=== PATIENT | male | born 2000 | race Caucasian/White ===

== ENCOUNTER 2024-03-08 14:55 | Outpatient (AMB) | payer BC, SELFPAY ==
[2024-03-08 15:00] VITALS: BP 120/74; PULSE 74; O2SAT 96; BMI 39.7
--- NOTE | 2024-03-08 15:00 | MHC.PC.OV ---
Vital Signs 03/08/24 15:00 Height 5 ft 8 in Weight 261 lb 2 oz BMI 39.7 BP 120/74 Blood Pressure Location Lt brachial Position Sitting Pulse 74 Pulse Source Pulse Oximeter Pulse Oximetry (%) 96 Oxygen Delivery Method Room Air Intake Visit Reasons: New patient-req physical Intake Note: Patient is here today as a new patient, and would like a refill on his inhaler, and would like TDAP, because he's going to be a father in April. Allergies No Known Allergies [No Known Allergies*] Allergy (Unverified 03/08/24 15:06) Medication List - Last Reconciled 03/08/24 by Brayan Vinson MD albuterol sulfate 90 mcg/actuation (Ventolin HFA) 2 puffs inhalation Q4-6H PRN cetirizine (All Day Allergy (cetirizine)) 10 mg PO DAILY PRN Tobacco use date assessed: 03/08/24 Dental Screening Dental Screen Date: 03/08/24 Did you have a dental visit in the last 12 months?: No Did you have a dental problem in the last 6 months where you did not have access to dental care?: No Was dental information given to patient?: Patient has dentist HPI New patient-req physical HPI Details New patient Prior PCP:?Jaylan Pelayo Last office visit/CPE: 1 yr Acute issue(s): Contact Derm PMHx: Asthma, Allergies. SurgHx: Perianal Abscess [facility] Blocked tear duct stented as infant FHx: Mom: Mom Asthma. Dad: Asthma, Cholecystitis. SocHx: No cigs. Vapes. EtOH 1- 2 x a week 3-4 dr. STEELE daily. No other drugs [facility] Medical History (Updated 03/08/24 @ 15:52 by Brayan Vinson MD) Acute hand eczema Asthma Surgical History (Updated 03/08/24 @ 15:13 by Kailyn Flores CMA) History of dacryocystorhinostomy Family History (Updated 03/08/24 @ 15:17 by Kailyn Flores CMA) Mother Asthma Psychiatric disorder Mental health disorder Father Asthma Paternal Grandfather Alcoholism Substance use disorder Social History (Updated 03/08/24 @ 15:23 by Kailyn Flores CMA) Household Members: Family Both parents involved: No Caregiver staying overnight: No Housing: Apartment Are you a primary ambulatory care nurse to a significant other at home: No Do you presently have visiting nurse or other home services: No 75 years or older and lives alone: No Alcohol intake: current Alcohol type: beer, hard liquor and other Comment: 2x a week. Patient Tobacco Use Status: Never used Tobacco e-Cigarette/Vaping Use: Currently Using Second Hand Smoke Exposure: Yes Use of substances other than those prescribed or required for medical reasons: Yes Substance Use Type: Marijuana Substance Use Type Other:: recreational Last Used Substance: Hours (ago) Have you been hit, kicked, punched, or otherwise hurt by someone within the past year? 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 1. Little interest or pleasure in doing things: not at all 2. Feeling down, depressed, or hopeless: not at all 3. Trouble falling or staying asleep, or sleeping too much: not at all 4. Feeling tired or having little energy: not at all 5. Poor appetite or overeating: not at all 6. Feeling bad about yourself - or that you are a failure or have let yourself or your family down: not at all 7. Trouble concentrating on things, such as reading the newspaper or watching television: not at all 8. Moving or speaking so slowly that other people could have noticed. Or the opposite - being so fidgety or restless that you have been moving around a lot more than usual: not at all 9. Thoughts that you would be better off or of hurting yourself in some way: not at all Total score: 0 Depression Screening Interpretation: Negative Depression Screening Done: Yes 32055 - PHQ-9 Billing: Yes Source: Developed by Drs. Bayron Andrews, Spencer Lyle and colleagues, with an educational jaylin from [employer]. Thrive Questionnaire Date Thrive assessed: 03/08/24 I am a: Patient What is your living situation today?: I have a steady place to live Within the past 12 months, did the food you bought not last and you didn't have the money to get more?: Never true Within the past 12 months, did you worry whether your food would run out before you got money to buy more?: Never true Do you have trouble paying for medicines?: No Do you have trouble getting transportation to medical appointments?: No Do you have trouble paying your heating and electricity bill?: No Do you have trouble taking care of your child, family member or friend?: No Do you have trouble with day-to-day activities such as bathing, preparing meals, shopping, managing finances, etc.?: No Are you currently unemployed and looking for a job?: No Are you interested in more education?: No THRIVE Score: 0 AUDIT C Alcohol Use Questionnaire (AUDIT-C) 1. How often do you have a drink containing alcohol?: 2-3 times a week 2. How many drinks containing alcohol do you have on a typical day when you are drinking?: 3 or 4 3. How often do you have six or more drinks on one occasion?: Never Total Score: 4 RC-7 AMB Questionnaire RC-7 Date RC - 7 assessed: 03/08/24 Feeling nervous, anxious, or on edge: 0 = Not at all Not being able to stop or control worryin = Not at all Worrying too much about different things: 0 = Not at all Trouble relaxin = Not at all Being so restless that it is hard to sit still: 0 = Not at all Becoming easily annoyed or irritable: 0 = Not at all Feeling afraid as if something awful might happen: 0 = Not at all Total RC-7 score (0-4 normal; 5-9 mild; 10-14 moderate; 15-21 severe): 0 Source: Developed by Drs. Bayron Andrews, Spencer Lyle and colleagues, with an educational jaylin from [employer]. RC-7 Assessment Billing RC-7 Assessment Tool: RC-7 Assessment 85217 ACT Questionnaire In the past 4 weeks, how much of the time did your asthma keep you from getting as much done at work, school or at home?: None of the time During the past 4 weeks, how often have you had shortness of breath?: 1-2 times a week During the past 4 weeks, how often did your asthma symptoms wake you up at night or earlier than usual in the morning?: Once or twice per week (once a month) During the past 4 weeks, how often have you had to use your rescue inhaler or nebulizer medication?: Once a week or less How would you rate your asthma control during the past 4 weeks?: Well controlled Score: 21 Review of Systems Const Denies chills, Denies fatigue, Denies fever(s), Denies headache(s) and Denies weakness ENT Denies dizziness and Denies headache(s) Card Denies chest pain, Denies lightheadedness, Denies dyspnea and Denies other (Palpitations) Resp Denies cough, Denies dyspnea, Denies wheezing and Denies other ( shortness of breath) Musc Denies numbness and Denies tingling Neuro Denies dizziness, Denies headache(s), Denies numbness, Denies tingling, Denies paresthesias and Denies weakness Psych Denies anxiety and Denies depression Endo Denies fatigue Aller/Immun Denies wheezing Physical exam (Primary Care) Vital Signs: Last Vital Signs Pulse 74 03/08/24 15:00 BP 120/74 03/08/24 15:00 Pulse Ox 96 03/08/24 15:00 Oxygen Delivery Method Room Air 03/08/24 15:00 BMI result Body Mass Index 39.7 Tobacco/Smoking Status: Tobacco use Status Tobacco use date assessed 03/08/24 03/08/24 15:31 Patient Tobacco Use Status Never used Tobacco 03/08/24 15:31 e-Cigarette/Vaping Use Currently Using 03/08/24 15:31 PHQ-9: PHQ-9 Score PHQ-9: Total score 0 03/08/24 15:33 Depression Screening Interpretation: Negative Thrive Assessment: Date of Thrive Assessment Date Thrive assessed 03/08/24 03/08/24 15:31 Const General: no acute distress and well developed Nutritional Appearance: well nourished Orientation/consciousness: patient oriented x3 [facility] Head: Yes normocephalic and Yes atraumatic Eyes General: appearance normal, both eyes and all related structures Pupils: Equal, round and reactive pupils present EOM: EOMs intact bilaterally Resp Effort & Inspection: normal respiratory effort Auscultation: clear to auscultation bilaterally Cardio Rate: regular rate Rhythm: regular rhythm Heart sounds: S1 normal heart sound present, S2 normal heart sound present, no gallops, no murmurs and no rubs Skin Other: Dry flaky excoriated skin bilateral knuckles Neuro General: patient oriented x3 and gait normal Cranial nerves: Yes Equal, round and reactive pupils present Psych Affect: normal affect Assessment and Plan Assessment & Plan (1) Contact dermatitis: Code(s): L25.9 - Unspecified contact dermatitis, unspecified cause Plan: Dry?excoriated?skin?with?small?skin?breaks?on?bilateral?hands/knuckles 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 Use?a?moisturizer?cream?after?every?hand?wash Avoid?harsh?soaps?and?chemicals Will?give?him?a?script?for?triamcinolone?ointment (2) Asthma: Code(s): J45.909 - Unspecified asthma, uncomplicated Plan: Patient?vapes?and?also?uses?MJ?daily Advised?only?clean?air?in?lungs.??He?can?let?me?know?if?he?wants?help?with?quitting Continue?albuterol?as?needed His?lungs?were?clear?today (3) Allergies: Code(s): T78.40XA - Allergy, unspecified, initial encounter Plan: Continue?cetirizine (4) Laboratory exam ordered as part of routine general medical examination: Code(s): Z00.00 - Encounter for general adult medical examination without abnormal findings Plan: Check?lab (5) Immunization due: Code(s): Z23 - Encounter for immunization Plan: Patient?is?going?to?be?a?father?soon?and?is?due?for?Tdap He?will?get?this?today Orders: Orders Lipid Panel Today Z00.00 - Encounter for general adult medical examination without abnormal findings Microalbumin, Random (w Creat) Today I10 - Essential (primary) hypertension TSH reflex Free T4 Today Z00.00 - Encounter for general adult medical examination without abnormal findings HIV Ab/Ag Today Z11.3 - Encounter for screening for infections with a predominantly sexual mode of transmission Hepatitis B,C Profile Today Z11.3 - Encounter for screening for infections with a predominantly sexual mode of transmission TDaP Immunization Today Z23 - Encounter for immunization Comprehensive [place]. Panel Fast Today Z00.00 - Encounter for general adult medical examination without abnormal findings UA and rflx microscopic Today Z00.00 - Encounter for general adult medical examination without abnormal findings CT NG by PCR Today Z11.3 - Encounter for screening for infections with a predominantly sexual mode of transmission Syphilis Screen Today Z11.3 - Encounter for screening for infections with a predominantly sexual mode of transmission Medications: New Boostrix Tdap (diphth,pertus(acell),tetanus) 0.5 mL IM ONCE 0.5 mL 0RF NS Z23 - Encounter for immunization albuterol sulfate 90 mcg/actuation (Ventolin HFA) 2 puffs inhalation Q4-6H 30 days PRN 8.5 grams 4RF shortness of breath or wheezing triamcinolone acetonide 0.5% 1 appl topical BID 14 days 30 grams 3RF cetirizine (All Day Allergy (cetirizine)) 10 mg PO DAILY 90 days PRN 90 tabs 3RF allergy symptoms Coding Level of Care Code New Pt Level 3 (40679) Diagnoses Contact dermatitis L25.9 Asthma J45.909 Allergies T78.40XA Laboratory exam ordered as part of routine general medical examination Z00.00 Immunization due Z23 Additional Codes RC-7 Assessment Billing - RC-7 Assessment Tool: RC-7 Assessment 18655 ([id number])
== END 2024-03-08 15:59 | disposition home or self-care (01) ==
PROVIDERS: PCP Family Medicine; Visit Provider Family Medicine
DX: L25.9 Unspecified contact dermatitis, unspecified cause (principal); J45.909 Unspecified asthma, uncomplicated; Z23 Encounter for immunization
CPT/HCPCS: 90471; 90715; 99203